=== PATIENT | male | born 1960 | race Two or more races ===

== ENCOUNTER 2018-04-17 13:45 | Emergency (ER) | payer SELFPAY ==
[2018-04-17 13:53] VITALS: BP 142/95
[2018-04-17] MEDS ORDERED: VALACYCLOVIR HCL 500 MG TABLET PO ONE (14:04)
[2018-04-17] MEDS ORDERED: ERYTHROMYCIN 0.5% OPH OINTMENT 3.5 GM (ER DISP) OD PRN (14:04)
[2018-04-17] MEDS ORDERED: PREDNISONE 20 MG TABLET PO ONE (14:04)
--- NOTE | 2018-04-17 14:13 | ER Document Report ---
ED General - General Chief Complaint: Headache Stated Complaint: HEADACHE Time Seen by Provider: 04/17/18 13:51 Notes: 58-year-old male complaining of left-sided facial pain and worsening facial droop over the past week. Patient states that he had this happen once several years ago and he was told as long as he did not have any other pain or weakness anywhere else it was not a stroke. Patient came in because he is having increasin difficulty closing his left eye and the left side of his mouth. States that he does not have any pain or weakness anywhere else aside from his left eye. States that his vision is unchanged but his left eye hurts. Patient does not have any rash or fever. TRAVEL OUTSIDE OF THE [place] IN LAST 30 DAYS: No Past Medical History - General Information source: Patient - Social History Smoking Status: Current Every Day Smoker Cigarette use (# per day): Yes - 6 Chew tobacco use (# tins/day): Yes Frequency of alcohol use: Occasional Drug Abuse: None Lives with: Family Family History: Reviewed & Not Pertinent Review of Systems - Review of Systems Constitutional: No symptoms reported EENT: See HPI, Eye pain, Other - Facial droop Cardiovascular: No symptoms reported Respiratory: No symptoms reported Gastrointestinal: No symptoms reported Neurological/Psychological: See HPI -: Yes All other systems reviewed and negative Physical Exam - Vital signs Vitals: Temp Pulse Resp BP Pulse Ox 97.9 F 74 16 142/95 H 97 04/17/18 13:51 04/17/18 13:51 04/17/18 13:51 04/17/18 13:51 04/17/18 13:51 Interpretation: Hypertensive - Notes Notes: GENERAL: Alert, interacts well. No acute distress. HEAD: Normocephalic, atraumatic, left-sided facial droop, can close left eye and left side of the mouth but it does have some difficulty. EYES: Pupils equal, round and reactive to light, extraocular movements intact. With difficulty patient is able to fully close the left eye however there is weakness in his ability to close the left upper eyelid. Slit-lamp exam does not reveal any cell and your chamber, patient does have a very small corneal abrasion at approximately the 5 o'clock position right on the edge of the iris. It does not cross over the pupil. No evidence of ulceration or foreign body. ENT: Oral mucosa moist, tongue midline. NECK: Full range of motion, supple, trachea midline. LUNGS: Clear to auscultation bilaterally, no wheezes, rales or rhonchi, no respiratory distress. HEART: Regular rate and rhythm, no murmurs, gallops, rubs. ABDOMEN: Soft, nontender, nondistended, bowel sounds present in all 4 quadrants. EXTREMITIES: Moves all 4 extremities spontaneously, no edema, radial and dorsalis pedis pulses 2/4 bilaterally. No cyanosis. NEUROLOGICAL: Alert and oriented x3, normal speech, left-sided facial droop, biceps and patellar DTRs 2+ bilaterally. PSYCH: Normal mood, normal affect. SKIN: Warm, Dry, normal turgor, no rashes or lesions noted. Course - Re-evaluation Re-evalutation: 04/17/18 14:24 No evidence of stroke, consistent with Chand's palsy, he does have corneal abrasion. Patient will be started on steroids, acyclovir and Neurontin. Patient is given erythromycin ointment for his corneal abrasion. Discharged home. - Vital Signs Vital signs: Temp Pulse Resp BP Pulse Ox 97.9 F 74 16 142/95 H 97 04/17/18 13:51 04/17/18 13:51 04/17/18 13:51 04/17/18 13:51 04/17/18 13:51 Discharge - Discharge Clinical Impression: Chand's palsy Condition: Stable Disposition: HOME, SELF-CARE Instructions: Chand's Palsy ([facility]), Corneal Abrasion ([facility]) Prescriptions: Gabapentin 100 mg PO TIDP PRN #14 capsule PRN Reason: Gabapentin [Neurontin 100 mg Capsule] 100 mg PO Q12 #7 capsule Prednisone [Deltasone 20 mg Tablet] 3 tab PO DAILY 3 Days tablet Prednisone 60 mg PO DAILY #6 tablet Valacyclovir HCl [Valacyclovir] 1,000 mg PO TID #9 tablet Valacyclovir HCl [Valacyclovir] 1,000 mg PO TID #12 tablet Referrals: [facility] [Provider Group] - Follow up in 3-5 days AMY CASTAÑEDA MD [ACTIVE STAFF] - Follow up as needed Print Language: Yakut
== END 2018-04-17 14:30 | disposition home or self-care (01) ==
LOC: ER 13:45
DX: G51.0 Bell's palsy (principal); S05.00XA Injury of conjunctiva and corneal abrasion without foreign body, unspecified eye, initial encounter; X58.XXXA Exposure to other specified factors, initial encounter; F17.210 Nicotine dependence, cigarettes, uncomplicated
CPT/HCPCS: 99283; J7512